=== PATIENT | female | born 2000 | race Caucasian/White ===

== ENCOUNTER 2024-08-01 09:08 | Observation (INO) ==
--- NOTE | 2024-07-25 09:18 | Anesthesiology Consultation ---
Date of Service July 25, 2024 Assessment & Plan (1) Encounter for pre-operative examination: Chart Review Chart Review: Acceptable Risk for Surgery and Patient NOT seen in Pre Admission Testing Prefers he/him/his pronouns - Check test AM DOS -Infectious Disease screening: Per PAT nursing assessment on 07/18/24. No known infectious disease contacts in past 10 days or current infectious disease symptoms. No recent travel outside the country. History Surgery Operation Date: 12/14/23 11:30 Proposed Procedures p Bilateral Mastectomy with Free Nipple Grafting and Suction Assisted Lipectomy of Lateral Chest - Janie Maldonado MD Operation Date: 08/01/24 07:30 Proposed Procedures p Bilateral Mastectomy with Free Nipple Grafting and Suction Assisted Lipectomy of Lateral Chest - Janie Maldonado MD Height/Weight Height: 5 ft 2 in Weight: 70.76 kg Allergies Allergy/AdvReac Type Severity Reaction Status Date / Time Penicillins Allergy Unknown Unknown Verified 07/18/24 15:03 Medications Home Medications Medication Instructions Recorded Confirmed Last Taken gabapentin 400 mg capsule 400 mg PO BID 09/10/23 07/20/24 Unknown lamotrigine 25 mg tablet 100 mg PO QAM 09/10/23 07/20/24 Unknown propranolol 10 mg tablet 10 mg PO BID PRN panic attacks 09/10/23 07/20/24 Unknown testosterone 4 pump topical DAILY 07/18/24 07/20/24 Unknown doxycycline hyclate 100 mg capsule 100 mg PO BID 7 days #14 caps 07/20/24 07/20/24 Unknown oxycodone-acetaminophen 5 mg-325 1 tab PO Q4H PRN pain #18 tabs 07/20/24 07/20/24 Unknown mg tablet (Endocet) Past Medical History Medical History Anxiety Bipolar disorder per hx, pt. denies Gender dysphoria in adult Prefers he/him/his pronouns Past Family History Family History Other Basal cell carcinoma Breast cancer Colorectal cancer Fibromyalgia Skin cancer Past Surgical History Surgical History No pertinent past surgical history Social History Smoking Status: Never smoker Do You Dip or Chew Tobacco: No Hx Alcohol Use: No Hx Substance Use: No substance use type: does not use Lab Results Anesthesia Preop Results Results Anesthesia Widget: WBC 8.50 K/ul (4.8-10.8) 07/20/24 Hgb 15.5 g/dl (12.0-16.0) 07/20/24 Hct 45.8 % (37.0-47.0) 07/20/24 Plt 269 K/uL (130-400) 07/20/24 Na 139 mmol/L (136-145) 07/20/24 K 3.9 mmol/L (3.5-5.1) 07/20/24 Cl 104 mmol/L (98-107) 07/20/24 CO2 32 mmol/L (21-32) 07/20/24 BUN 12 mg/dl (6-23) 07/20/24 Creat 0.94 mg/dl (0.6-1.2) 07/20/24 Glucose Level 88 mg/dl (70-99(Fasting)) 07/20/24 PT 11.1 Seconds (9.0-12.0) 07/20/24 INR 1.0 (0.9-1.1) 07/20/24
[2024-08-01] MEDS: LACTATED RINGER'S 1,000 ML IV SCH (09:36)
[2024-08-01] MEDS ORDERED: LIDOCAINE 2% 2 ML VIAL/AMP(20MG/ML) INFIL ONE (10:32)
[2024-08-01] MEDS ORDERED: MIDAZOLAM HCL 1 MG/ML 2ML VIAL ONE (10:32)
[2024-08-01] MEDS ORDERED: PROPOFOL IV EMULSION 10 MG/ML 20 ML VIAL IV ONE ×3 (10:32→13:07)
[2024-08-01] MEDS ORDERED: ROCURONIUM BROMIDE 10 MG/ML 5 ML VIAL IV ONE ×2 (10:32→12:17)
[2024-08-01] MEDS ORDERED: ONDANSETRON INJ 2 MG/ML 2 ML VIAL ONE ×2 (10:32→13:44)
[2024-08-01] MEDS ORDERED: fentaNYL citrate PF 100 MCG/2 ML VIAL ONE ×2 (10:32→12:18)
--- NOTE | 2024-08-01 10:45 | History & Physical Bridge Note ---
Date of Service August 01, 2024 History & Physical Bridge Note I have examined the patient, reviewed the History & Physical and in the interval since the performance of the History & Physical I have noted the following changes of clinical significance: no changes noted
[2024-08-01] MEDS ORDERED: SCOPOLAMINE 1 MG/72 HR TDSY PATCH TD ONE (11:26)
[2024-08-01] MEDS ORDERED: fentaNYL citrate PF 100 MCG/2 ML VIAL IV PRN (11:27)
[2024-08-01] MEDS ORDERED: ePHEDrine sulfate 50 MG/ML AMP IV PRN (11:27)
[2024-08-01] MEDS ORDERED: HYDROmorphone INJ 2 MG/ML SYR/VIAL IV PRN (11:27)
[2024-08-01] MEDS ORDERED: ATROPINE SULFATE 0.1 MG/ML 10ML SYR IV PRN (11:27)
[2024-08-01] MEDS ORDERED: PROMETHAZINE HCL 6.25 MG in SODIUM CHLORIDE 0.9% 50 ML IV PRN (11:27)
[2024-08-01] MEDS ORDERED: ONDANSETRON INJ 2 MG/ML 2 ML VIAL IV PRN ×3 (11:27→16:12)
[2024-08-01] MEDS: TRANEXAMIC ACID 1,000 MG **IV Pre-op IV SCH (11:35)
[2024-08-01] MEDS ORDERED: ACETAMINOPHEN 1000 MG/100 ML IV IV ONE (12:37)
[2024-08-01] MEDS ORDERED: SUGAMMADEX SODIUM 200 MG/2 ML VIAL IV ONE (13:41)
--- NOTE | 2024-08-01 14:21 | Post Operative Brief Note ---
PG Immediate Post Op with CF Date of Surgery August 01, 2024 Pre & Post Diagnosis Operation Date: 08/01/24 10:50 Pre-Op Diagnosis: Gender Dysphoria Post-Op Diagnosis: Gender Dysphoria I identified the patient and participated in the time-out.: Yes Procedure Operation Date: 08/01/24 10:50 Actual Procedures p Bilateral Non-Cancerous Mastectomy with Free Nipple Graft - Janie Maldonado MD Surgeon Janie Maldonado MD Packaging Coordinator Mae Palomo PA-C Estimated Blood Loss 10 Findings Consistent with Post-Op Diagnosis Specimens Specimen Description: A) Left Breast Tissue- sent to lab at 1304 B) Right Breast Tissue- sent to lab at 1400 Drains Bjorn-Hernandez Drain
[2024-08-01] MEDS ORDERED: DexMEDEtomidine HCL IV 100 MCG/ML VIAL IV ONE (14:31)
--- NOTE | 2024-08-01 14:46 | Operative Report ---
PG Post Operative Report Pre & Post Diagnosis Operation Date: 08/01/24 10:50 Pre-Op Diagnosis: Gender Dysphoria Post-Op Diagnosis: Gender Dysphoria I identified the patient and participated in the time-out.: Yes Procedure Operation Date: 08/01/24 10:50 Actual Procedures p Bilateral Non-Cancerous Mastectomy with Free Nipple Graft - Janie Maldonado MD Surgeon Janie Maldonado MD Textiles Printer Mae Palomo PA-C Estimated Blood Loss 10 Findings Consistent with Post-Op Diagnosis Specimens bilateral breast tissue to pathology Drains [id number] Anesthesia Type General Complications none Indications female to male transgender person desiring gender affirming masctectomy Description of Procedure The risks benefits and alternatives of the procedure were explained to the patient, who agreed and signed consent. He was identified and marked in the preoperative holding area. I marked the incisions about 1 cm superior to the inframammary folds and marked the superior incision in a linear fashion in order to provide a horizontal scar pattern if possible. Nipple site was confirmed with the patient. He was brought to the operating room where he was placed under general anesthesia in supine position without incident. Surgical site was prepped and draped sterilely. A time out procedure was performed. 1% lidocaine with epinephrine was used to anesthetize the planned incisions. Nipple areolar complex grafts were harvested. I elected to use a 28 mm cookie cutter to size the nipple areolar complex. It was harvested using a 15 blade scalpel and was defatted using a curved iris scissor. They were placed on the back table in a saline soaked sponge until I was ready to place the grafts. I began by making the inferior incision using 15 blade scalpel. Incision was deepened through dermis using electrocautery, and deepened down to the chest wall. I began raising the breast off of underlying pectoralis fascia until I could confirm that the wound could be closed without tension. I then confirmed marking of the superior incision, which was made with a 15 blade scalpel and deepened using electrocautery. The breast was passed off as specimen. Superiorly, breast was undermined to the clavicle and the superior flap was further thinned until it was of uniform thickness, approximately 2 cm in thickness and just slightly thicker than the thickness of the abdominal subcutaneous tissue. Throughout dissection, hemostasis was achieved using the bovie. I did perform some additional undermining inferiorly along the inframammary fold to facilitate closure and disrupt the inframammary fold. Prior to closure, the wound was irrigated, examined for hemostasis. A 15 [place] Island[place] Pedro drain was placed in the wound bed and brought out through a separate stab incision laterally.Deep dermis was closed using 2-0 Vicryl interrupted sutures, superficial dermis closed using 2-0 PDO running Quill suture, and subcuticular wound closure was performed using 3-0 Monocryl. Following closure, the nipple areolar complex was inset. I made a circular incision at the lateral border of pectoralis and just superior to the incision. This was de-epithelialized. The nipple areolar graft was inset first using 5-0 plain gut suture. An identical procedure was performed on the right side. The graft was inset using 5-0 fast absorbing suture. 6 4-0 silk tie over bolster sutures were placed, and a Xeroform and cotton bolster was placed. Sylke dressing was applied to the incisions. Dry dressings and drain sponges were placed. A binder was placed. Procedure was tolerated well. Patient was awakened and transferred to the recovery room in satisfactory condition. Mae Palomo PA-C was present and scrubbed throughout the entire procedure. She assisted in retraction, hemostasis, and simultaneous wound closure. I attest to the content of the Intraoperative Record and any orders documented therein. Any exceptions are noted below.
--- NOTE | 2024-08-01 15:08 | Anesthesiology Progress Note ---
Date of Service August 01, 2024 Anesthesia Post Procedure Vital Signs Vital Signs: Temp Pulse Pulse Resp BP Pulse Ox O2 Del Method 08/01/24 15:05 66 12 116/62 98 Room Air 08/01/24 14:55 68 12 127/65 97 Room Air 08/01/24 14:45 62 17 131/74 100 Oxymask 08/01/24 14:35 36.5 C 75 14 135/74 99 Oxymask 08/01/24 09:31 36.9 C 85 20 119/75 99 Room Air O2 Flow Rate 08/01/24 15:05 08/01/24 14:55 08/01/24 14:45 5 08/01/24 14:35 11 08/01/24 09:31 Transfer of Care Handoff Completed per policy Notes Mental Status: alert / awake / arousable Patient Amnestic to Procedure: Yes Nausea / Vomiting: adequately controlled Pain: adequately controlled Airway Patency, RR, SpO2: stable & adequate BP & HR: stable & adequate Hydration State: stable & adequate Anesthetic Complications: no major complications apparent
[2024-08-01] MEDS ORDERED: diphenhydrAMINE Capsule 25 MG CAP PO PRN (15:31)
[2024-08-01] MEDS ORDERED: PROMETHAZINE 12.5 MG/50.5 ML BAG IV PRN (15:31)
[2024-08-01] MEDS ORDERED: oxyCODONE/ACETAMINOPHEN 5mg/325mg TAB PO PRN (15:31)
[2024-08-01] MEDS ORDERED: ACETAMINOPHEN 325 MG TAB PO PRN (15:31)
[2024-08-01] MEDS ORDERED: diphenhydrAMINE 50 MG/ML VIAL IV PRN (15:31)
[2024-08-01] MEDS ORDERED: LORazepam 0.5 MG TAB PO PRN (15:31)
[2024-08-01] MEDS: CLINDAMYCIN/D5W 900 MG/50 ML BAG IV SCH (17:12)
[2024-08-01] MEDS: TRANEXAMIC ACID 1,000 MG **IV Intra-op IV SCH (17:12)
[2024-08-01] MEDS: CLINDAMYCIN/D5W 600 MG/50 ML BAG IV SCH ×2 (18:16→19:37)
[2024-08-01] MEDS: GABAPENTIN 400 MG CAP PO SCH (20:08)
[2024-08-02] MEDS: oxyCODONE/ACETAMINOPHEN 5mg/325mg TAB PO PRN (03:07)
[2024-08-02 03:22] VITALS: O2SAT 97
[2024-08-02 07:27] VITALS: BP 101/65; PULSE 57; RESP 16; TEMP 97.7
--- NOTE | 2024-08-02 07:33 | Surgery Progress Note ---
Date of Service August 02, 2024 Assessment & Plan (1) Gender dysphoria in adult: Plan: S/P top surgery. Mahesh well, d/c home today with office f/u in one week. Post-op restrictions were reviewed Admission and Anticipated Discharge Date Admission Date: August 01, 2024 Subjective Patient resting comfortably. Pain is well controlled. Physical Exam Physical Exam: drains with serosang output. incisions CDI, bolsters intact Results & Data Vital Signs (Past 12 Hours) Vital Signs Temp Pulse Resp BP Pulse Ox O2 Del Method 08/02/24 07:26 36.5 C 57 L 16 101/65 97 Room Air 08/02/24 03:05 36.7 C 59 L 18 100/62 97 Room Air 08/01/24 22:58 36.8 C 55 L 16 95/58 L 98 Room Air 08/01/24 19:52 36.7 C 62 19 97/61 L 94 Room Air PG Care Time/CCT Total # of Minutes Spent Total Time Spent with Patient: Total time spent is greater than 50% in coordination of care (as documented) at patient's floor/unit and/or counseling patient: Coding Level of Care Code 46448 Post Operative Follow-Up Diagnoses Gender dysphoria in adult F64.0
[2024-08-02] MEDS: MULTIVITAMIN TAB PO SCH (07:44)
[2024-08-02] MEDS: lamoTRIgine 100 MG TAB PO SCH (07:44)
[2024-08-02] MEDS: CETIRIZINE HCL 10 MG TABLET PO PRN (07:45)
--- NOTE | 2024-08-02 15:12 | Discharge Summary ---
Date of Service August 02, 2024 Admission HPI Per Admitting Provider History of gender dysphoria, here for top surgery. Principal Diagnosis Gender Dysphoria Discharge Exam drains with serosang output. incisions CDI, bolsters intact Discharge Data Allergies Allergy/AdvReac Type Severity Reaction Status Date / Time Penicillins Allergy Unknown Unknown Verified 08/01/24 09:28 Procedures Performed Operation Date: 08/01/24 10:50 Actual Procedures p Bilateral Non-Cancerous Mastectomy with Free Nipple Graft - Janie Maldonado MD Ordered Studies 08/01/24 05:00 US - OR guided needle placemen Routine Hospital Course (1) Gender dysphoria in adult: Patient presented to [facility] with history of gender dysphoria. He was taken to the OR and underwent bilateral non-cancerous mastectomy with free nipple graft. There were no intraoperative complications. He was taken to recovery and transferred to med/surg for observation. On POD#1, he was feeling well. He was tolerating a regular diet and ambulating. On exam, his vitals were stable. His incisions were CDI and nipples bolsters intact. He was discharged home with instructions to follow-up in the office in one day. Total Time Total Time Spent Total Time Spent (In Minutes): 15 Discharge Plan Discharge Items Patient Disposition: Home - Self-Care Reason For Visit: Gender Dysphoria Discharge Diagnosis: s/p top surgery Activity: As commented below Non-emergency contact: Surgeon Call non-emergency contact if: you have any medication questions, your pain is not controlled, you have a fever, your wound has increased redness and your wound has increased drainage Follow-up/Referrals: Mae Palomo PA-C [Physician Photogrammetric Compilation Specialist] - PCP,NO [Primary Care Provider] - Diet: Regular Addtl Attending Provider Instructions: ACTIVITY RECOMMENDATIONS: __Normal activities _x_No bending, lifting or straining. Keep arms at houlder height or below __No driving __Driving allowed when you are off pain medications _x_Walking permitted __You should have help at home for ___ days __You may return to previous diet. DRESSINGS: __No dressings required _x_Keep dressings dry/in place until first office visit- OK to remove outer gauze and tape dressing tomorrow __Remove dressings ___ and leave dressings off __Apply ice ___ days __Remove dressings and reapply garment __Apply antibiotic ointment (Bacitracin, Neosporin, etc) to wounds 3-4 times/day for 10 days BATHING: _x_Keep dressings dry _x_Sponge bathing permitted away from surgical sites __Showering permitted _x_No swimming, hot tubs or soaking in a tub MEDICATIONS: Resume previous medications unless instructed otherwise by your surgeon. _x_Do not use aspirin, Motrin, Advil or Ibuprofen as these may promote bleeding. Please use Tylenol. _x_Prescription(s) provided: pain medication and antibiotics were provided at the last office visit- begin antibiotics today OTHER INSTRUCTIONS: _x_Record drain output 2-3 times per day.Drain can be removed when output is 10cc/ 24 hours SPECIAL CARE INSTRUCTIONS: * It is normal to have a mild fever after surgery. If your temperature is higher than 101.5 degrees F, please call the office at [phone]. * Constipation is a typical side effect of pain medication. An [id number] stool softener will help relieve this. * Leaking around surgical drains may occur and should not cause concern. Sometimes these drains become clogged. If this happens, remove the bulb and milk the clot out of the tube, then replace the bulb. * Drainage from wounds after liposuction is normal and should be expected. Garments will become soiled. You should protect furniture and bedding. This drainage should mostly subside within 2-3 days. Leave garments in place unless instructed to remove them. * If you have unusual drainage from a wound or are concerned you have an infection or have any questions or concerns, please call the office at [phone]. FOLLOW UP VISIT: If not already scheduled, please call the office, , when you return home after surgery to schedule an appointment to be seen in _6__ days. Pending Studies at Discharge: Yes Stand-Alone Forms: [facility], Smoking Cessation Medications and DC Order Prescriptions: Continued gabapentin 400 mg capsule 400 mg PO BID propranolol 10 mg tablet 10 mg PO BID PRN (Reason: panic attacks) lamotrigine [Lamictal] 25 mg tablet 100 mg PO QAM oxycodone-acetaminophen [Endocet] 5-325 mg tablet 1 tab PO Q4H PRN (Reason: pain) Qty: 18 0RF Rx Instructions: initial therapy Dr. Maldonado [id number] post-op med testosterone 20.25 mg/1.25 gram (1.62 %) Gel In Metered-Dose Pump 5 pump TOPICAL DAILY Rx Instructions: apply 1 pump amount over max area of EACH upper arm and shoulder cetirizine [Zyrtec] 10 mg Tablet 10 mg PO DAILY PRN (Reason: Allergy Symptoms) Discharge Orders: Discharge Order (Routine); Ordered 08/02/24 Ordered By: Mae Palomo Admission Data Admit Date/Time: 08/01/24 14:30 Attending Provider: Janie Maldonado Admit Provider: Janie Maldonado Primary Care Provider: PCP,NO Other Interventions: Discharge Summary Assessment (RN) Last Done: 08/02/24 11:35 Coding Level of Care Code 73645 OBS Care - Discharge Diagnoses Gender dysphoria in adult F64.0
== END 2024-08-02 12:14 | disposition home or self-care (01) ==
LOC: ASU 09:08 → 3E 09:08